=== PATIENT | male | born 1965 | race Caucasian/White ===

== ENCOUNTER 2020-05-03 03:10 | Emergency (ER) | payer SELFPAY ==
[2020-05-03] MEDS ORDERED: predniSONE 20 MG Tab PO STA (04:12)
--- NOTE | 2020-05-03 04:20 | EDM.PDOC ---
ED HPI GENERAL MEDICAL PROBLEM - General Chief Complaint: General Stated Complaint: covid Time Seen by Provider: 05/03/20 03:15 Source of Information: Reports: Patient History Limitations: Reports: No Limitations - History of Present Illness INITIAL COMMENTS - FREE TEXT/NARRATIVE: Patient presented to the ED because of fever,chills,malaise, cough and cold with associated dyspnea for 2 days. There is no N/V/D. GENERALIZED Pain Score (Numeric/FACES): 0 - Related Data Allergies Allergy/AdvReac Type Severity Reaction Status Date / Time No Known Allergies Allergy Verified 05/03/20 03:40 Home Meds: Home Meds predniSONE [Prednisone] 40 mg PO DAILY #10 tablet 05/03/20 [Rx] ED ROS GENERAL - Review of Systems Review Of Systems: See Below Constitutional: Reports: Fever, Chills, Malaise, Weakness HEENT: Reports: No Symptoms Respiratory: Reports: Shortness of Breath, Cough Cardiovascular: Reports: No Symptoms Endocrine: Reports: No Symptoms GI/Abdominal: Reports: No Symptoms : Reports: No Symptoms Musculoskeletal: Reports: No Symptoms Skin: Reports: No Symptoms Neurological: Reports: No Symptoms ED EXAM, GENERAL - Physical Exam Exam: See Below Exam Limited By: No Limitations General Appearance: Alert, No Apparent Distress Eye Exam: Bilateral Eye: PERRL Ears: Normal External Exam, Normal Canal Nose: Normal Inspection, Normal Mucosa, No Blood Throat/Mouth: Normal Inspection, Normal Lips, Normal Teeth Head: Atraumatic, Normocephalic Neck: Normal Inspection, Supple, Non-Tender, Full Range of Motion Respiratory/Chest: No Respiratory Distress, Lungs Clear, Wheezing Cardiovascular: Normal Peripheral Pulses, Regular Rate, Rhythm, No Edema, No Gallop GI/Abdominal: Normal Bowel Sounds, Soft, Non-Tender, No Organomegaly Back Exam: Normal Inspection, Full Range of Motion Extremities: Normal Inspection, Normal Range of Motion, Non-Tender, No Pedal Edema, Normal Capillary Refill Course - Vital Signs Text/Narrative:: COVID-pos CXR-see result Oxygen VNC with significant improvemnt of his dyspnea. His oxygen saturation upon discharge was 98% on RA Prednisone 40 mg po x1 Last Recorded V/S: Last Vital Signs Temp 36.5 C 05/03/20 05:30 Pulse 104 H 05/03/20 05:30 Resp 18 05/03/20 05:30 BP 142/67 H 05/03/20 05:30 Pulse Ox 98 05/03/20 05:30 - Orders/Labs/Meds Labs: Laboratory Tests 05/03/20 Range/Units 04:00 SARS-CoV-2 RNA (KOLE) Positive H (NEGATIVE) Meds: Medications Discontinued Medications Generic Name Dose Route Start Last Admin Trade Name Chu PRN Reason Stop Dose Admin Prednisone 40 mg 05/03/20 04:12 05/03/20 04:28 Prednisone PO 05/03/20 04:13 40 mg NOW STA Administration Departure - Departure Time of Disposition: 05:30 Disposition: Home, Self-Care 01 Condition: Good Clinical Impression: Viral respiratory illness, COVID-19 - Discharge Information Prescriptions: predniSONE [Prednisone] 40 mg PO DAILY #10 tablet Instructions: COVID-19 Frequently Asked Questions, Viral Respiratory Infection, [id number] Referrals: PCP,None [Primary Care Provider] - Forms: ED Department Discharge Additional Instructions: please read discharge instructions on viral respiratory illness/COVID 19 increase oral fluids at least 2-3 liters a days take ibuprofen 800 mg with tylenol 1000 mg every 8 hours as needed for fever/aches/pain take 1 tablet daily of Vitamin C-500 mg, Vitamin D-2000 Units, and Zinc-50 mg isolate yourself for 10-14 days Sepsis Event Note (ED) - Focused Exam Vital Signs: Vital Signs Temp Pulse Resp BP Pulse Ox 05/03/20 05:30 36.5 C 104 H 18 142/67 H 98 05/03/20 03:15 36.6 C 106 H 20 131/55 L 98
--- NOTE | 2020-05-03 11:10 | CR ---
INDICATION: Cough, dyspnea. CHEST ONE VIEW: An AP upright portable view of the chest was obtained 05/03/20 - no comparisons. The heart appears enlarged, but is emphasized by AP positioning. The examination is overpenetrated limiting its usability for diagnosis. Pulmonary vasculature appears somewhat congested raising question of CHF. Pulmonary vascular congestion of other cause could be present. No gross consolidating pneumonia or effusion was seen. Exogenous obesity is noted. IMPRESSION: Somewhat limited study suggests CHF with cardiomegaly, but should be correlated clinically. Full inspiration PA and lateral views of the chest are recommended when clinically possible. MTDD
== END 2020-05-03 05:45 | disposition home or self-care (01) ==
LOC: FB.ED 03:10
DX: U07.1 COVID-19 (principal)
CPT/HCPCS: 71045; 99283-25; J7512; U0002

== ENCOUNTER 2020-05-05 08:55 | Emergency (ER) | payer SELFPAY ==
[2020-05-05] MEDS ORDERED: Albuterol 8 GM Inhaler INH ONE ×2 (08:56→10:16)
--- NOTE | 2020-05-05 09:59 | EDM.PDOC ---
ED HPI GENERAL MEDICAL PROBLEM - General Chief Complaint: Respiratory Problem Stated Complaint: COVID SYMPTOMS Time Seen by Provider: 05/05/20 09:50 Source of Information: Reports: Patient History Limitations: Reports: No Limitations - History of Present Illness INITIAL COMMENTS - FREE TEXT/NARRATIVE: 54-year-old male who reports that on 04/27/2020 he developed nasal congestion, cough, malaise, body aches and. The symptoms persisted and on 05/03/2020 he was seen in this emergency department and had a chest x-ray which showed very vascularity and he had a COVID 19 test that was positive. His O2 saturations and other vital signs were normal. A prescription for prednisone and told to drink plenty of fluids, rest and take ibuprofen and Tylenol. He came to the emergency department today to get a note for his work and he reports that when he walked into the emergency department he was very short of breath and he felt that he should be seen. His O2 saturations at that time were 95%. His Rester rate was up at 24 but his blood pressure and pulse were normal. He denies any vomiting. He has had some nausea. He has not been able to get his prednisone filled because he does not have any money to do such. He has been drinking liquids well. He reports body aches and headache that he rates as an 8/10. It is aching and dull. It does seem to get somewhat better with Tylenol and ibuprofen. There are no other associated signs or symptoms. There are no other modifying factors. Onset: Other (04/27/2020) Duration: Constant (The patient felt that he was somewhat worse today when he was walking from the car to here.) Location: Reports: Head, Generalized Quality: Reports: Ache, Dull Severity: Moderate Improves with: Reports: Medication Worsens with: Reports: Movement Context: Reports: Other (The above) Associated Symptoms: Reports: No Other Symptoms (Except as above) Treatments PANTS CUTTER: Reports: NSAIDS Generalized Pain Score (Numeric/FACES): 8 - Related Data Allergies Allergy/AdvReac Type Severity Reaction Status Date / Time No Known Allergies Allergy Verified 05/05/20 09:05 Home Meds: Home Meds predniSONE [Prednisone] 40 mg PO DAILY #10 tablet 05/03/20 [Rx] Ascorbic Acid [Vitamin C] 1,000 mg PO DAILY 05/05/20 [History] Cholecalciferol (Vitamin D3) [Vitamin D3] 2,000 unit PO DAILY 05/05/20 [History] Zinc Gluconate [Zinc] 40 mg PO DAILY 05/05/20 [History] Past Medical History Musculoskeletal History: Reports: Arthritis, Fracture Other Musculoskeletal History: hx fx arm x 2, L arm x 1, deviated septum, Neurological History: Reports: Seizure Psychiatric History: Reports: Addiction, Anxiety, Bipolar, Depression, Psych Hospitalization(s), Schizophrenia, Suicide Attempt Other Psychiatric History: hx ETOH abuse & pot abuse, Endocrine/Metabolic History: Reports: Obesity/BMI 30+ - Infectious Disease History Infectious Disease History: Reports: Chicken Pox - Past Surgical History HEENT Surgical History: Reports: Adenoidectomy, Myringotomy w Tube(s), Tonsillectomy GI Surgical History: Reports: Cholecystectomy Social & Family History - Family History Family Medical History: No Pertinent Family History - Tobacco Use Tobacco Use Status *Q: Former Tobacco User Years of Tobacco use: 3 Used Tobacco, but Quit: Yes Month/Year Tobacco Last Used: 2018 - Caffeine Use Caffeine Use: Reports: Coffee, Energy Drinks, Soda, Tea - Alcohol Use Days Per Week of Alcohol Use: 3 Number of Drinks Per Day: 5 Total Drinks Per Week: 15 - Recreational Drug Use Recreational Drug Use: Yes Recreational Drug Type: Reports: Marijuana/Hashish Recreational Drug Use Frequency: Daily - Living Situation & Occupation Occupation: Employed (At [employer]) Social History Comment: He states he recently moved here from [place]. ED ROS GENERAL - Review of Systems Review Of Systems: See Below Constitutional: Reports: Fever, Chills, Malaise, Fatigue, Decreased Appetite HEENT: Reports: Other (Nasal congestion) Respiratory: Reports: Shortness of Breath, Wheezing, Cough Cardiovascular: Reports: No Symptoms GI/Abdominal: Reports: Nausea. Denies: Diarrhea, Vomiting : Reports: No Symptoms Musculoskeletal: Reports: Other (Diffuse body aches) Skin: Reports: No Symptoms Neurological: Reports: No Symptoms Hematologic/Lymphatic: Reports: No Symptoms Immunologic: Reports: No Symptoms ED EXAM, GENERAL - Physical Exam Exam: See Below Exam Limited By: No Limitations General Appearance: Alert, Mild Distress (He looks uncomfortable and he does ayon ve an increased respiratory rate but normal vital signs otherwise.), Obese Eye Exam: Bilateral Eye: EOMI, Normal Inspection Ears: Normal External Exam, Hearing Grossly Normal Ear Exam: Bilateral Ear: Auricle Normal Nose: Nasal Drainage Throat/Mouth: Normal Voice, No Airway Compromise Head: Atraumatic, Normocephalic Neck: Normal Inspection, Supple, Non-Tender, Full Range of Motion Respiratory/Chest: No Accessory Muscle Use, Crackles, Rhonchi, Wheezing, Other (Good air movement.) Cardiovascular: Normal Peripheral Pulses, Regular Rate, Rhythm, No Murmur Peripheral Pulses: 2+: Radial (L), Radial (R) GI/Abdominal: Normal Bowel Sounds, Soft, Non-Tender, Other (Protuberant) Back Exam: Normal Inspection Extremities: Normal Inspection, Normal Range of Motion, Normal Capillary Refill Neurological: Alert, Oriented, CN II-XII Intact, Normal Cognition, No Motor/Sensory Deficits Skin Exam: Warm, Dry, Intact, Normal Color, No Rash Course - Vital Signs Last Recorded V/S: Last Vital Signs Temp 36.7 C 05/05/20 08:55 Pulse 98 05/05/20 08:55 Resp 24 H 05/05/20 08:55 BP 149/76 H 05/05/20 08:55 Pulse Ox 98 05/05/20 08:55 - Orders/Labs/Meds Orders: Active Orders 24 hr Category Date Time Status Accu Check [Blood Glucose Check, Bedside] [RC] ONETIME Care 05/05/20 10:29 Active RT Post Treatment Assessment [RC] Click to Edit Care 05/05/20 10:17 Active Labs: Laboratory Tests 05/05/20 Range/Units 10:32 POC Glucose 108 H (74-100) mg/dL Meds: Medications Discontinued Medications Generic Name Dose Route Start Last Admin Trade Name Checoq PRN Reason Stop Dose Admin Albuterol 1 gm 05/05/20 10:16 Ventolin Hfa INH 05/05/20 10:17 ONETIME ONE Prednisone 60 mg 05/05/20 10:16 05/05/20 10:27 Prednisone PO 05/05/20 10:17 60 mg ONETIME ONE Administration - Re-Assessments/Exams Free Text/Narrative Re-Assessment/Exam: 05/05/20 10:15: Middle-aged male with diagnosis of COVID on 05/03/2020. He was seen in this emergency Department by Dr. Curtis and had a chest x-ray that time which showed some increased pulmonary vascularity. He was placed on prednisone and given instructions on COVID and told to do symptomatic treatment. Today his O2 saturations are normal. His respiratory rate is slightly increased but his pulse and blood pressure were normal. He does not appear to be toxic at this time. He did not get his prednisone filled because he did not have money to do so. His exam today did show some crackles and maybe some wheezing. I will give him an albuterol inhaler to use and I will give him another dose of prednisone today and he tells me that his brother will be able to get his prednisone filled for him tomorrow. He is to continue home treatment as was directed previously. Precautions and reasons for return to the emergency department were discussed with the patient while he was in the emergency department every detail to the patient's discharge instructions. Departure - Departure Time of Disposition: 10:30 Disposition: Home, Self-Care 01 Condition: Good (Stable) Clinical Impression: COVID-19 virus infection URI (upper respiratory infection) Qualifiers: URI type: unspecified URI Qualified Code(s): J06.9 - Acute upper respiratory infection, unspecified - Discharge Information Referrals: PCP,None [Primary Care Provider] - Forms: ED Department Discharge, ED Return to Work/School Form Additional Instructions: Your exam a showed a normal O2 saturation. Your blood pressure and pulse were also normal. Your blood sugar was 108 and that is normal. You do have some wheezing and you were give an albuterol inhaler to use for your shortness of breath and cough. You should use the spacer that we provided and you may use 2-4 puffs every 4 hours as needed for wheezing, shortness of breath or cough. You were also given another dose of prednisone and you will need to get the prescription filled that you were given by Doctor on Saturday and finish that. Increase your fluid intake. Take Tylenol and ibuprofen as needed for fever or pain. No work for 10 days from 05/03/2020 and until you are fever free for 24 hours back to the emergency department for Aashish vomiting, severe weakness, worsened breathing or any other concerning sign or symptom. Sepsis Event Note (ED) - Evaluation Sepsis Screening Result: Possible Sepsis Risk - Focused Exam Vital Signs: Vital Signs Temp Pulse Resp BP Pulse Ox 05/05/20 08:55 36.7 C 98 24 H 149/76 H 98 - My Orders Last 24 Hours: My Active Orders 05/05/20 10:17 RT Post Treatment Assessment [RC] Click to Edit 05/05/20 10:29 Accu Check [Blood Glucose Check, Bedside] [RC] ONETIME - Assessment/Plan Last 24 Hours: My Active Orders 05/05/20 10:17 RT Post Treatment Assessment [RC] Click to Edit 05/05/20 10:29 Accu Check [Blood Glucose Check, Bedside] [RC] ONETIME
[2020-05-05] MEDS ORDERED: predniSONE 20 MG Tab PO ONE (10:16)
== END 2020-05-05 10:55 | disposition home or self-care (01) ==
LOC: EEVIPCON 08:55 → FB.ED 08:55
DX: U07.1 COVID-19 (principal); J06.9 Acute upper respiratory infection, unspecified; E66.9 Obesity, unspecified; Z68.41 Body mass index [BMI] 40.0-44.9, adult; Z87.891 Personal history of nicotine dependence
CPT/HCPCS: 82962; 99283; J7512; A9270-GY

== ENCOUNTER 2020-12-07 09:23 | Emergency (ER) | payer OTHER ==
[2020-12-07] MEDS ORDERED: Sodium Chloride 0.9% 10 ML Syringe FLUSH PRN (09:24)
[2020-12-07] MEDS ORDERED: diphenhydrAMINE 50 MG/ML SDV IVPUSH ONE (09:40)
--- NOTE | 2020-12-07 09:48 | EDM.PDOC ---
ED HPI GENERAL MEDICAL PROBLEM - General Chief Complaint: Respiratory Problem Stated Complaint: SOB Time Seen by Provider: 12/07/20 09:40 Source of Information: Reports: Patient History Limitations: Reports: No Limitations - History of Present Illness INITIAL COMMENTS - FREE TEXT/NARRATIVE: Patient developed pruritis to bilateral forearms, a blotchy rash to legs, and SOB after drinking tea this morning. The tea was procured from [place] and he does not know the ingredients. His legs feel restless. Patient was sent from clinic to the ED this morning by EMS. He did have chest pain in the clinic, but this has since resolved. Patient was hospitalized for 7 weeks in April 2020 with COVID pneumonia and GI bleed. He has required Albuterol MDI intermittently since this hospitalization, but is currently out. Patient admits to drinking alcohol regularly and, other than THC, does not use illicit drugs. Denies cough. No prior h/o CAD. Onset: Today - Related Data Allergies Allergy/AdvReac Type Severity Reaction Status Date / Time No Known Allergies Allergy Verified 05/05/20 09:05 Home Meds: Home Meds ALPRAZolam [Xanax] 0.25 mg PO 12/07/20 [History] Albuterol Sulfate [Albuterol Sulfate Hfa] 2 puff IH Q4H PRN #1 hfa.aer.ad 12/07/20 [Rx] Baclofen 5 mg PO 12/07/20 [History] Furosemide [Lasix] 20 mg PO 12/07/20 [History] Furosemide [Lasix] 40 mg PO 12/07/20 [History] Lactulose [Cephulac] 10 gm PO 12/07/20 [History] Pantoprazole [ProTONIX] 40 mg PO DAILY 12/07/20 [History] Sertraline [Zoloft] 50 mg PO DAILY 12/07/20 [History] Spironolactone [Aldactone] 100 mg PO DAILY 12/07/20 [History] Triamcinolone Acetonide [Triamcinolone Acetonide 0.1% Crm] 1 applic .XX 12/07/20 [History] Past Medical History Gastrointestinal History: Reports: Cirrhosis Musculoskeletal History: Reports: Arthritis, Fracture Other Musculoskeletal History: hx fx arm x 2, L arm x 1, deviated septum, Psychiatric History: Reports: Addiction, Anxiety, Bipolar, Depression, Psych Hospitalization(s), Suicide Attempt Other Psychiatric History: hx ETOH abuse & pot abuse, Endocrine/Metabolic History: Reports: Obesity/BMI 30+ - Infectious Disease History Infectious Disease History: Reports: Chicken Pox - Past Surgical History Head Surgeries/Procedures: Reports: None HEENT Surgical History: Reports: Adenoidectomy, Myringotomy w Tube(s), Tonsillectomy GI Surgical History: Reports: Cholecystectomy Musculoskeletal Surgical History: Reports: None Social & Family History - Family History Family Medical History: No Pertinent Family History - Caffeine Use Caffeine Use: Reports: Coffee, Energy Drinks, Soda, Tea - Alcohol Use Alcohol Use History: Yes - Recreational Drug Use Recreational Drug Type: Reports: Marijuana/Hashish - Living Situation & Occupation Occupation: Employed (At [employer]) ED ROS GENERAL - Review of Systems Review Of Systems: Comprehensive ROS is negative, except as noted in HPI. ED EXAM, GENERAL - Physical Exam Exam: See Below Exam Limited By: No Limitations General Appearance: Alert, WD/WN, No Apparent Distress Eye Exam: Bilateral Eye: EOMI, PERRL Nose: Normal Inspection Throat/Mouth: No Airway Compromise Head: Atraumatic, Normocephalic Neck: Full Range of Motion Respiratory/Chest: No Respiratory Distress, Lungs Clear, Normal Breath Sounds Cardiovascular: Regular Rate, Rhythm, No Murmur GI/Abdominal: Non-Tender Back Exam: Full Range of Motion Extremities: Normal Range of Motion, Non-Tender, Normal Capillary Refill, Pedal Edema, Other (rhythmic leg movements present which stops when distracted) Neurological: Alert, Oriented, No Motor/Sensory Deficits Psychiatric: Anxious Skin Exam: Warm, Dry, Other (mild erythema to lower legs with scattered pale blotches) #1 Interpretation EKG Date: 12/07/20 Time: 09:20 Rhythm: NSR Rate (Beats/Min): 88 Butler: Normal P-Wave: Present QRS: Normal ST-T: Normal Comparison: No Change (06/02/2020) Course - Vital Signs Last Recorded V/S: Last Vital Signs Temp 36.7 C 12/07/20 09:23 Pulse 89 12/07/20 10:30 Resp 20 12/07/20 10:30 BP 147/60 H 12/07/20 10:30 Pulse Ox 98 12/07/20 10:30 - Orders/Labs/Meds Orders: Active Orders 24 hr Category Date Time Status EKG Documentation Completion [RC] ASDIRECTED Care 12/07/20 09:24 Active Ang Chest [CT] Stat Exams 12/07/20 10:15 Taken Sodium Chloride 0.9% [Saline Flush] Med 12/07/20 09:24 Active 10 ml FLUSH ASDIRECTED PRN Saline Lock Insert [OM.PC] Routine Oth 12/07/20 09:24 Ordered EKG 12 Lead [EK] Stat Ther 12/07/20 09:24 Ordered Medication Orders Sodium Chloride (Sodium Chloride 0.9% 10 Ml Syringe) 10 ml FLUSH ASDIRECTED PRN PRN Reason: Keep Vein Open Last Admin: 12/07/20 11:28 Dose: 10 ml Documented by: PAYTON Labs: Laboratory Tests 12/07/20 12/07/20 12/07/20 Range/Units 09:40 09:40 09:40 WBC 6.6 (3.2-10.1) x10-3/uL RBC 3.29 L (3.90-5.90) x10(6)uL Hgb 10.3 L (12.9-17.7) g/dL Hct 31.3 L (38.3-50.1) % MCV 95.1 (80.8-98.7) fL MCH 31.4 (27.0-33.3) pg MCHC 33.0 (28.7-35.3) g/dL RDW 14.4 (12.4-15.0) % Plt Count 181 (117-477) x10(3)uL MPV 8.2 (6.7-11.0) fL Neut % (Auto) 76.1 H (40.3-71.8) % Lymph % (Auto) 10.8 L (15.8-45.3) % Johnston % (Auto) 10.6 (5.5-15.2) % Eos % (Auto) 1.7 (0.1-6.8) % Baso % (Auto) 0.8 (0.3-3.8) % Neut # (Auto) 5.0 (1.7-6.9) x10-3/uL Lymph # (Auto) 0.7 (0.5-4.5) x10-3/uL Johnston # (Auto) 0.7 (0.0-1.2) x10-3/uL Eos # (Auto) 0.1 (0.0-0.6) x10-3/uL Baso # (Auto) 0.0 (0.0-0.3) x10-3/uL PT 11.4 H (9.0-11.1) sec INR 1.06 (1.00-1.24) APTT 28.1 (24.4-33.2) SECONDS D-Dimer, Quantitative 0.64 H (0.0-0.59) mg/LFEU Sodium 134 L (135-145) mmol/L Potassium 4.2 (3.5-5.3) mmol/L Chloride 98 L (100-110) mmol/L Carbon Dioxide 26 (21-32) mmol/L BUN 8 (7-18) mg/dL Creatinine 1.1 (0.70-1.30) mg/dL Est Cr Clr Drug Dosing 69.27 mL/min Estimated GFR (MDRD) > 60 (>60) BUN/Creatinine Ratio 7.3 L (9-20) Glucose 120 H (80-116) mg/dL Calcium 8.4 L (8.6-10.2) mg/dL Magnesium 2.0 (1.8-2.5) mg/dL Total Bilirubin 1.1 (0.1-1.3) mg/dL AST 91 H (5-25) IU/L ALT 32 (12-36) U/L Alkaline Phosphatase 198 H (56-112) IU/L Troponin I (4.0-60.3) pg/mL NT-Pro-B Natriuret Pep (<=125) pg/mL Total Protein 8.3 H (6.0-8.0) g/dL Albumin 2.9 L (3.5-5.2) g/dL Globulin 5.4 g/dL Albumin/Globulin Ratio 0.5 SARS-CoV-2 RNA (KOLE) (NEGATIVE) 12/07/20 12/07/20 Range/Units 09:40 09:48 WBC (3.2-10.1) x10-3/uL RBC (3.90-5.90) x10(6)uL Hgb (12.9-17.7) g/dL Hct (38.3-50.1) % MCV (80.8-98.7) fL MCH (27.0-33.3) pg MCHC (28.7-35.3) g/dL RDW (12.4-15.0) % Plt Count (117-477) x10(3)uL MPV (6.7-11.0) fL Neut % (Auto) (40.3-71.8) % Lymph % (Auto) (15.8-45.3) % Johnston % (Auto) (5.5-15.2) % Eos % (Auto) (0.1-6.8) % Baso % (Auto) (0.3-3.8) % Neut # (Auto) (1.7-6.9) x10-3/uL Lymph # (Auto) (0.5-4.5) x10-3/uL Johnston # (Auto) (0.0-1.2) x10-3/uL Eos # (Auto) (0.0-0.6) x10-3/uL Baso # (Auto) (0.0-0.3) x10-3/uL PT (9.0-11.1) sec INR (1.00-1.24) APTT (24.4-33.2) SECONDS D-Dimer, Quantitative (0.0-0.59) mg/LFEU Sodium (135-145) mmol/L Potassium (3.5-5.3) mmol/L Chloride (100-110) mmol/L Carbon Dioxide (21-32) mmol/L BUN (7-18) mg/dL Creatinine (0.70-1.30) mg/dL Est Cr Clr Drug Dosing mL/min Estimated GFR (MDRD) (>60) BUN/Creatinine Ratio (9-20) Glucose (80-116) mg/dL Calcium (8.6-10.2) mg/dL Magnesium (1.8-2.5) mg/dL Total Bilirubin (0.1-1.3) mg/dL AST (5-25) IU/L ALT (12-36) U/L Alkaline Phosphatase (56-112) IU/L Troponin I 17.9 (4.0-60.3) pg/mL NT-Pro-B Natriuret Pep 132 H (<=125) pg/mL Total Protein (6.0-8.0) g/dL Albumin (3.5-5.2) g/dL Globulin g/dL Albumin/Globulin Ratio SARS-CoV-2 RNA (KOLE) Negative (NEGATIVE) Meds: Medications Generic Name Dose Route Start Last Admin Trade Name Freq PRN Reason Stop Dose Admin Sodium Chloride 10 ml 12/07/20 09:24 12/07/20 11:28 Sodium Chloride 0.9% 10 Ml Syringe FLUSH 10 ml ASDIRECTED PRN Administration Keep Vein Open Discontinued Medications Generic Name Dose Route Start Last Admin Trade Name Freq PRN Reason Stop Dose Admin Diphenhydramine HCl 25 mg 12/07/20 09:40 12/07/20 10:29 Diphenhydramine 50 Mg/Ml Sdv IVPUSH 12/07/20 09:41 25 mg ONETIME ONE Administration Iopamidol 100 ml 12/07/20 10:24 12/07/20 10:47 Iopamidol 755 Mg/Ml 100 Ml Bottle IV 12/07/20 10:25 90 ml . DIRECTED ONE Administration - Radiology Interpretation Free Text/Narrative:: CXR: No acute process. (ED provider interpretation) CTA Chest: No pulmonary embolus seen, no pneumonia. (verbal report from Dr. Vega) - Re-Assessments/Exams Free Text/Narrative Re-Assessment/Exam: 12/07/20 11:31 Dyspnea and leg rash resolved after Benadryl 25mg IV. Departure - Departure Time of Disposition: 11:32 Disposition: Home, Self-Care 01 Condition: Good Clinical Impression: Allergic reaction Qualifiers: Encounter type: initial encounter Qualified Code(s): T78.40XA - Allergy, unspe cified, initial encounter Dyspnea Qualifiers: Dyspnea type: unspecified Qualified Code(s): R06.00 - Dyspnea, unspecified - Discharge Information *PRESCRIPTION DRUG MONITORING PROGRAM REVIEWED*: No *COPY OF PRESCRIPTION DRUG MONITORING REPORT IN PATIENT [place]: Not Applicable Prescriptions: Albuterol Sulfate [Albuterol Sulfate Hfa] 2 puff IH Q4H PRN #1 hfa.aer.ad PRN Reason: Shortness Of Breath Instructions: Allergies, Adult, [id number], Shortness of Breath, Adult Referrals: Betty Alonso PA-C [Primary Care Provider] - Forms: ED Department Discharge, ED Return to Work/School Form Additional Instructions: Fill the prescription for Albuterol at [facility] in [place] and take as directed. Take OTC Benadryl 50mg every 6 hours as needed to control allergic symptoms. Discontinue the tea. Return to the ER as needed. Sepsis Event Note (ED) - Evaluation Sepsis Screening Result: No Definite Risk - Focused Exam Vital Signs: Vital Signs Temp Pulse Resp BP Pulse Ox 12/07/20 10:30 89 20 147/60 H 98 12/07/20 09:30 89 20 155/75 H 97 12/07/20 09:23 36.7 C 98 20 151/60 H 98 - My Orders Last 24 Hours: My Active Orders 12/07/20 09:24 EKG Documentation Completion [RC] ASDIRECTED Sodium Chloride 0.9% [Saline Flush] 10 ml FLUSH ASDIRECTED PRN Saline Lock Insert [OM.PC] Routine EKG 12 Lead [EK] Stat 12/07/20 10:15 Ang Chest [CT] Stat - Assessment/Plan Last 24 Hours: My Active Orders 12/07/20 09:24 EKG Documentation Completion [RC] ASDIRECTED Sodium Chloride 0.9% [Saline Flush] 10 ml FLUSH ASDIRECTED PRN Saline Lock Insert [OM.PC] Routine EKG 12 Lead [EK] Stat 12/07/20 10:15 Ang Chest [CT] Stat
[2020-12-07] MEDS ORDERED: Iopamidol 755 Mg/ML 100 ML Bottle IV ONE (10:24)
--- NOTE | 2020-12-07 10:43 | CR ---
INDICATION: Short of breath. CHEST ONE VIEW: AP portable upright view of the chest was limited by patient body habitus - exogenous obesity. The heart did not appear grossly enlarged. No gross consolidating pneumonia or effusion was identified. Compared with 05/03/20, little interval change is suggested. It is difficult to exclude interstitial changes - possibly fibrotic. IMPRESSION: 1. No definite acute process. 2. Possible pulmonary fibrosis. 3. Exogenous obesity. MTDD
--- NOTE | 2020-12-07 12:15 | CT ---
INDICATION: Short of breath, question PE, elevated D-dimer 0.64. CT ANGIOGRAPHY OF THE CHEST WITH CONTRAST: Spiral 1.25 mm axial sections were obtained through the chest with 90 mL Isovue-370 at 4 mL/sec with axial, sagittal and coronal reconstructions 12/07/20 - no comparisons except for a chest x-ray of the same date. Total exam DLP was 1058.30 milligray-cm. Detail is somewhat limited due to patient body habitus. A mild degree of mediastinal lymphadenopathy is noted which is nonspecific. No mediastinal mass was seen. The heart appears to be at the upper limits of normal in size. A small fixed hiatal hernia is noted. No pericardial effusion was seen. The upper abdomen included on the study showed evidence of cholecystectomy. An active infiltrate, effusion, or nodular mass was not identified in the lungs or pleural spaces. Pulmonary arteries were not well opacified apparently due to the patient breathing during the examination due to his shortness of breath apparently. No definite pulmonary emboli could be identified. Certainly, no large emboli were present. IMPRESSION: 1. The study is somewhat limited as to concentration of contrast in the pulmonary arteries. However, no definite pulmonary emboli could be identified. 2. Heart at the upper limits of normal in size or slightly enlarged. 3. Small fixed hiatal hernia. 4. Post cholecystectomy. 5. Exogenous obesity. Report was called to Dr. Pereira at 1124 hours 12/07/20. [facility]
== END 2020-12-07 11:53 | disposition home or self-care (01) ==
LOC: FB.ED 09:23
DX: T78.1XXA Other adverse food reactions, not elsewhere classified, initial encounter (principal); R06.02 Shortness of breath; E66.9 Obesity, unspecified; Z68.39 Body mass index [BMI] 39.0-39.9, adult; Z79.899 Other long term (current) drug therapy; Z20.822 Contact with and (suspected) exposure to COVID-19
CPT/HCPCS: 36415; 71045; 71275; 80053; 83735; 83880; 84484; 85025; 85379; 85610; 85730; 87635; 93005; 93010; 96374; 99284; 99285; J1200; Q9967; U0002

== ENCOUNTER 2021-01-16 09:43 | Emergency (ER) | payer OTHER ==
[2021-01-16] MEDS ORDERED: Sodium Chloride 0.9% 10 ML Syringe FLUSH PRN (10:16)
[2021-01-16] MEDS ORDERED: Pantoprazole 40 MG Vial IVPUSH STA (10:18)
[2021-01-16] MEDS ORDERED: Ondansetron 4 MG/2 ML SDV IVPUSH ONE (10:18)
[2021-01-16] MEDS ORDERED: Morphine 2 MG/ML SYRINGE IVPUSH STA (10:19)
[2021-01-16] MEDS ORDERED: Sodium Chloride 0.9% 1,000 ML IV SCH (10:30)
[2021-01-16] MEDS ORDERED: Iopamidol 755 MG/ML 150 ML Bottle IV ONE (10:43)
--- NOTE | 2021-01-16 11:19 | EDM.PDOC ---
ED HPI GENERAL MEDICAL PROBLEM - General Chief Complaint: Gastrointestinal Problem Stated Complaint: GI BLEED-LIVER PT Time Seen by Provider: 01/16/21 09:50 Source of Information: Reports: Patient History Limitations: Reports: No Limitations - History of Present Illness INITIAL COMMENTS - FREE TEXT/NARRATIVE: Patient is a 55 YO WM who presented to the ED because of coughing with blood tinged sputum which started last night and at 3 am today he had abdominal pain, nausea, vomiting and 1 melanotic stool. His pain is sharp,8/10, over the epigastric area. He has a history of ALD with esophageal and gastric varices. Upper Abdomen Pain Score (Numeric/FACES): 4 - Related Data Allergies Allergy/AdvReac Type Severity Reaction Status Date / Time No Known Allergies Allergy Verified 01/16/21 10:16 Home Meds: Home Meds ALPRAZolam [Xanax] 0.25 mg PO DAILY PRN 12/07/20 [History] Baclofen 5 mg PO BEDTIME PRN 12/07/20 [History] Furosemide [Lasix] 20 mg PO ASDIRECTED 12/07/20 [History] Furosemide [Lasix] 40 mg PO ASDIRECTED 12/07/20 [History] Lactulose [Cephulac] 45 ml PO TID 12/07/20 [History] Pantoprazole [ProTONIX] 40 mg PO DAILY 12/07/20 [History] Sertraline [Zoloft] 50 mg PO DAILY 12/07/20 [History] Spironolactone [Aldactone] 100 mg PO DAILY 12/07/20 [History] Triamcinolone Acetonide [Triamcinolone Acetonide 0.1% Crm] 1 applic TOP TID PRN 12/07/20 [History] Acetaminophen 650 mg PO Q6HR PRN 01/16/21 [History] Albuterol Sulfate [Albuterol Sulfate Hfa] 1 puff IH Q6H PRN 01/16/21 [History] Past Medical History Respiratory History: Reports: Other (See Below) Other Respiratory History: Pneumonia Gastrointestinal History: Reports: Cirrhosis Musculoskeletal History: Reports: Arthritis, Fracture Other Musculoskeletal History: hx fx arm x 2, L arm x 1, deviated septum, Psychiatric History: Reports: Addiction, Anxiety, Bipolar, Depression, Psych Hospitalization(s), Suicide Attempt Other Psychiatric History: hx ETOH abuse & pot abuse, Endocrine/Metabolic History: Reports: Obesity/BMI 30+ Hematologic History: Reports: Blood Transfusion(s) - Infectious Disease History Infectious Disease History: Reports: Chicken Pox - Past Surgical History Head Surgeries/Procedures: Reports: None HEENT Surgical History: Reports: Adenoidectomy, Myringotomy w Tube(s), Tonsillectomy GI Surgical History: Reports: Cholecystectomy Musculoskeletal Surgical History: Reports: None Social & Family History - Family History Family Medical History: No Pertinent Family History - Caffeine Use Caffeine Use: Reports: None - Living Situation & Occupation Occupation: Employed (At [employer]) ED ROS GENERAL - Review of Systems Review Of Systems: See Below Constitutional: Reports: No Symptoms HEENT: Reports: No Symptoms Respiratory: Reports: No Symptoms Cardiovascular: Reports: No Symptoms Endocrine: Reports: No Symptoms GI/Abdominal: Reports: Abdominal Pain, Black Stool, Nausea, Vomiting Musculoskeletal: Reports: No Symptoms Skin: Reports: No Symptoms Neurological: Reports: No Symptoms Psychiatric: Reports: No Symptoms ED EXAM, GI/ABD - Physical Exam Exam: See Below Exam Limited By: No Limitations General Appearance: Alert, No Apparent Distress Ears: Normal External Exam, Normal Canal Nose: Normal Inspection, Normal Mucosa Throat/Mouth: Normal Inspection, Normal Lips, Normal Teeth Head: Atraumatic, Normocephalic Neck: Normal Inspection, Supple, Non-Tender, Full Range of Motion Respiratory/Chest: No Respiratory Distress, Lungs Clear, Normal Breath Sounds, No Accessory Muscle Use, Chest Non-Tender Cardiovascular: Normal Peripheral Pulses, Regular Rate, Rhythm, No Edema, No Gallop, No JVD, No Murmur GI/Abdominal Exam: Normal Bowel Sounds, Soft, Other (epigastric,LUQ and RUQ tenderness) Back Exam: Normal Inspection, Full Range of Motion Extremities: Normal Inspection, Normal Range of Motion, Non-Tender, No Pedal Edema, Normal Capillary Refill Neurological: Alert, Oriented, CN II-XII Intact, Normal Cognition, Normal Reflexes, No Motor/Sensory Deficits Psychiatric: Normal Affect Course - Vital Signs Text/Narrative:: Lab result was reviewed and discussed with patient Chest and Abd CT-pending Protonix 80 mg IV x1 Morphine 2 mg IV x1 Zofran 8 mg IV x1 NS 1 L bolus Octreotide 50 mcg IV bolus and 50 mcg IV/hr drip Case was discussed with DR Gonzalez Code status: Full Code Last Recorded V/S: Last Vital Signs Temp 36.9 C 01/16/21 12:53 Pulse 93 01/16/21 12:53 Resp 20 01/16/21 12:53 BP 153/70 H 01/16/21 12:53 Pulse Ox 96 01/16/21 12:53 - Orders/Labs/Meds Orders: Active Orders 24 hr Category Date Time Status Saline Lock Insert [OM.PC] Routine Oth 01/16/21 10:16 Ordered Labs: Laboratory Tests 01/16/21 01/16/21 01/16/21 Range/Units 09:55 09:55 09:55 WBC 7.5 (3.2-10.1) x10-3/uL RBC 3.05 L (3.90-5.90) x10(6)uL Hgb 8.7 L (12.9-17.7) g/dL Hct 26.9 L (38.3-50.1) % MCV 88.0 (80.8-98.7) fL MCH 28.4 (27.0-33.3) pg MCHC 32.3 (28.7-35.3) g/dL RDW 16.3 H (12.4-15.0) % Plt Count 198 (117-477) x10(3)uL MPV 7.9 (6.7-11.0) fL Neut % (Auto) 75.1 H (40.3-71.8) % Lymph % (Auto) 12.4 L (15.8-45.3) % [place] % (Auto) 9.4 (5.5-15.2) % Eos % (Auto) 2.7 (0.1-6.8) % Baso % (Auto) 0.4 (0.3-3.8) % Neut # (Auto) 5.7 (1.7-6.9) x10-3/uL Lymph # (Auto) 0.9 (0.5-4.5) x10-3/uL [place] # (Auto) 0.7 (0.0-1.2) x10-3/uL Eos # (Auto) 0.2 (0.0-0.6) x10-3/uL Baso # (Auto) 0.0 (0.0-0.3) x10-3/uL PT 12.0 H (9.0-11.1) sec INR 1.12 (1.00-1.24) APTT 27.9 (24.4-33.2) SECONDS Sodium 130 L (135-145) mmol/L Potassium 4.0 (3.5-5.3) mmol/L Chloride 98 L (100-110) mmol/L Carbon Dioxide 25 (21-32) mmol/L BUN 12 (7-18) mg/dL Creatinine 1.2 (0.70-1.30) mg/dL Est Cr Clr Drug Dosing 63.50 mL/min Estimated GFR (MDRD) > 60 (>60) BUN/Creatinine Ratio 10.0 (9-20) Glucose 132 H (80-116) mg/dL Calcium 8.5 L (8.6-10.2) mg/dL Total Bilirubin 3.4 H (0.1-1.3) mg/dL AST 83 H (5-25) IU/L ALT 30 (12-36) U/L Alkaline Phosphatase 227 H (56-112) IU/L Total Protein 8.0 (6.0-8.0) g/dL Albumin 2.9 L (3.5-5.2) g/dL Globulin 5.1 g/dL Albumin/Globulin Ratio 0.6 Amylase 87 (25-115) U/L Lipase (73-393) U/L Urine Color (YELLOW) Urine Appearance (CLEAR) Urine pH (5.0-6.5) Ur Specific [place] (1.010-1.025) Urine Protein (NEGATIVE) mg/dL Urine Glucose (UA) (NORMAL) mg/dL Urine Ketones (NEGATIVE) mg/dL Urine Occult Blood (NEGATIVE) Urine Nitrite (NEGATIVE) Urine Bilirubin (NEGATIVE) Urine Urobilinogen (NEGATIVE) mg/dL Ur Leukocyte Esterase (NEGATIVE) Urine RBC (0-5) Urine WBC (0-5) Ur Squamous Epith Cells (NS,R,O) Urine Bacteria (NS) 01/16/21 01/16/21 Range/Units 09:55 12:16 WBC (3.2-10.1) x10-3/uL RBC (3.90-5.90) x10(6)uL Hgb (12.9-17.7) g/dL Hct (38.3-50.1) % MCV (80.8-98.7) fL MCH (27.0-33.3) pg MCHC (28.7-35.3) g/dL RDW (12.4-15.0) % Plt Count (117-477) x10(3)uL MPV (6.7-11.0) fL Neut % (Auto) (40.3-71.8) % Lymph % (Auto) (15.8-45.3) % [place] % (Auto) (5.5-15.2) % Eos % (Auto) (0.1-6.8) % Baso % (Auto) (0.3-3.8) % Neut # (Auto) (1.7-6.9) x10-3/uL Lymph # (Auto) (0.5-4.5) x10-3/uL [place] # (Auto) (0.0-1.2) x10-3/uL Eos # (Auto) (0.0-0.6) x10-3/uL Baso # (Auto) (0.0-0.3) x10-3/uL PT (9.0-11.1) sec INR (1.00-1.24) APTT (24.4-33.2) SECONDS Sodium (135-145) mmol/L Potassium (3.5-5.3) mmol/L Chloride (100-110) mmol/L Carbon Dioxide (21-32) mmol/L BUN (7-18) mg/dL Creatinine (0.70-1.30) mg/dL Est Cr Clr Drug Dosing mL/min Estimated GFR (MDRD) (>60) BUN/Creatinine Ratio (9-20) Glucose (80-116) mg/dL Calcium (8.6-10.2) mg/dL Total Bilirubin (0.1-1.3) mg/dL AST (5-25) IU/L ALT (12-36) U/L Alkaline Phosphatase (56-112) IU/L Total Protein (6.0-8.0) g/dL Albumin (3.5-5.2) g/dL Globulin g/dL Albumin/Globulin Ratio Amylase (25-115) U/L Lipase 329 (73-393) U/L Urine Color Yellow (YELLOW) Urine Appearance Clear (CLEAR) Urine pH 8.0 H (5.0-6.5) Ur Specific [place] 1.010 (1.010-1.025) Urine Protein Negative (NEGATIVE) mg/dL Urine Glucose (UA) Normal (NORMAL) mg/dL Urine Ketones Negative (NEGATIVE) mg/dL Urine Occult Blood Negative (NEGATIVE) Urine Nitrite Negative (NEGATIVE) Urine Bilirubin Negative (NEGATIVE) Urine Urobilinogen 1 H (NEGATIVE) mg/dL Ur Leukocyte Esterase Negative (NEGATIVE) Urine RBC 0-5 (0-5) Urine WBC 0-5 (0-5) Ur Squamous Epith Cells Occasional (NS,R,O) Urine Bacteria Rare H (NS) Meds: Medications Discontinued Medications Generic Name Dose Route Start Last Admin Trade Name Freq PRN Reason Stop Dose Admin Sodium Chloride 1,000 mls @ 999 mls/hr 01/16/21 10:30 01/16/21 10:22 Normal Saline IV 999 mls/hr ASDIRECTED JOE Administration Octreotide Acetate 250 mcg/ 252.5 mls @ 50.5 mls/hr 01/16/21 11:45 01/16/21 12:17 Sodium Chloride IV 50 mcg/hr Q10H JOE 50.5 mls/hr Administration 50 MCG/HR Iopamidol 132 ml 01/16/21 10:43 01/16/21 10:57 Iopamidol 755 Mg/Ml 150 Ml Bottle IV 01/16/21 10:44 132 ml ONETIME ONE Administration Morphine Sulfate 2 mg 01/16/21 10:19 01/16/21 10:24 Morphine 2 Mg/Ml Syringe IVPUSH 01/16/21 10:20 2 mg NOW STA Administration Octreotide Acetate 50 mcg 01/16/21 11:33 01/16/21 12:17 Octreotide 100 Mcg/Ml Sdv IVPUSH 01/16/21 11:34 50 mcg NOW STA Administration Ondansetron HCl 8 mg 01/16/21 10:18 01/16/21 10:25 Ondansetron 4 Mg/2 Ml Sdv IVPUSH 01/16/21 10:19 8 mg ONETIME ONE Administration Pantoprazole Sodium 80 mg 01/16/21 10:18 01/16/21 10:25 Pantoprazole 40 Mg Vial IVPUSH 01/16/21 10:19 80 mg NOW STA Administration Sodium Chloride 10 ml 01/16/21 10:16 01/16/21 10:40 Sodium Chloride 0.9% 10 Ml Syringe FLUSH 10 ml ASDIRECTED PRN Administration Keep Vein Open Departure - Departure Time of Disposition: 12:00 Disposition: DC/Tfer to Acute Hospital 02 Condition: Good Clinical Impression: UGI bleed, Esophageal varices, Alcoholic liver disease, Anemia due to GI blood loss - Discharge Information Referrals: PCP,Not In Area [Primary Care Provider] - Forms: ED Department Discharge Sepsis Event Note (ED) - Evaluation Sepsis Screening Result: No Definite Risk - My Orders Last 24 Hours: My Active Orders 01/16/21 10:16 Saline Lock Insert [OM.PC] Routine - Assessment/Plan Last 24 Hours: My Active Orders 01/16/21 10:16 Saline Lock Insert [OM.PC] Routine
[2021-01-16] MEDS ORDERED: Octreotide 100 MCG/ML SDV IVPUSH STA (11:33)
[2021-01-16] MEDS ORDERED: Octreotide 250 MCG in Sodium Chloride 0.9% 250 ML IV SCH (11:45)
--- NOTE | 2021-01-16 12:58 | CT ---
INDICATION: Hemoptysis. CT CHEST WITH CONTRAST [id number]: Spiral 3.75 mm axial sections were obtained through the chest with contrast already on board from CT of the abdomen and pelvis. Sagittal, coronal, and axial reconstructions were obtained 01/16/21 - comparison 12/07/20. Total exam DLP was 997.42 mGy-cm. There is an increase in mediastinal lymphadenopathy compared with the previous study, likely on the basis of interval infections. No mediastinal mass was identified. The heart appeared to be at the upper limits of normal in size. No pericardial effusion was seen. Small fixed hiatal hernia is suggested. There is some linear density in the middle lobe compatible with subsegmental atelectasis, not present on the previous study. A definite active infiltrate or effusion was not identified. No mass lesions were seen in the lungs or pleural spaces. There is thickening of the major fissure at the lung base likely fibrotic in nature and present previously. IMPRESSION: 1. No definite acute abnormality except for question of linear atelectasis in the middle lobe. 2. ASHD. 3. Small fixed hiatal hernia. 4. Post cholecystectomy. Report was called to Dr. Curtis at at 1231 hours, 01/16/21. [facility]
--- NOTE | 2021-01-16 13:17 | CT ---
INDICATION: Epigastric pain, bloody stools - history of three GI bleeds, including esophageal. CT ABDOMEN AND PELVIS WITH CONTRAST [id number]: Spiral 3.75 mm axial sections were obtained through the abdomen and pelvis with 132 mL Isovue-370 at 3 mL/second with sagittal and coronal reconstructions 01/16/21 - no comparisons. TOTAL EXAM DLP: 2317.12 mGy/cm. The lower lung mcdermott and pleural spaces visualized revealed slightly prominent patchy subpleural markings, which may represent fibrosis, although minimal pneumonia would be a consideration. The heart appears to be at the upper limits of normal in size. No pericardial effusion was seen. Small fixed hiatal hernia is suggested. The liver had a normal appearance, except for a small low-density lesion anteriorly in the right lobe, seen on axial image 26, which may represent a cyst. Slightly thickened wall at the gastric antrum raises question of peptic ulcer disease - correlate clinically. The gallbladder is absent, compatible with cholecystectomy. The adrenal glands appear grossly normal. The kidneys, spleen and pancreas appear normal with normal common bile duct in the head of the pancreas, and no intrahepatic ductal dilatation suggested. No retroperitoneal mass was seen. Calcifications are noted in the aorta without aneurysmic dilatation. Erosive iliac artery calcifications on the right and also right femoral artery calcification. No significant inguinal or ventral hernia was noted. There is an appearance suggesting some thickening of the lining-wall of the colon - transverse and descending. This could be on the basis of colitis, but should be correlated clinically. Sigmoid diverticulosis is noted without definite evidence of diverticulitis. There also appears to be some thickening of the wall in the retrosigmoid. Urinary bladder appeared normal. The prostate did not appear enlarged. The appendix is absent, compatible with history of its removal. No evidence of free air or bowel obstruction was seen. Hypertrophic degenerative changes are noted in the mid to lower lumbosacral spine with degenerative disc disease at L5-S1 with vacuum disc phenomenon at that level. There is some herniated gas in the epidural space at that level also. Narrowing of the neural foramina at L5-S1 is noted. IMPRESSION: 1. Thickening of the wall of the colon, as noted above, could represent colitis - colonoscopy may be helpful for further evaluation. 2. Post cholecystectomy, post appendectomy. 3. Small low-density lesion right lobe of the liver, likely a cyst. 4. Degenerative changes and disc disease lumbosacral spine. 5. Diverticulosis colli - sigmoid, without definite diverticulitis. 6. Tiny fixed hiatal hernia is suggested. 7. Slightly thickened wall at the gastric antrum raises question of peptic ulcer disease - correlate clinically. Report was called to Dr. Curtis at 1144 hours,. 01/16/21. [facility]
== END 2021-01-16 12:53 ==
LOC: FB.ED 09:43
DX: K70.9 Alcoholic liver disease, unspecified (principal); I85.11 Secondary esophageal varices with bleeding; D50.0 Iron deficiency anemia secondary to blood loss (chronic); E66.9 Obesity, unspecified; Z68.39 Body mass index [BMI] 39.0-39.9, adult; Z90.49 Acquired absence of other specified parts of digestive tract
CPT/HCPCS: 36415; 71250; 74177; 80053; 81001; 82150; 83690; 85025; 85610; 85730; 96365; 96375; 99285; C9113; J2270; J2354; J2405; J7030; J7050; Q9967

== ENCOUNTER 2021-06-20 11:28 | Emergency (ER) | payer BC, MEDICAID ==
[2021-06-20] MEDS ORDERED: Acetaminophen/HYDROcodone 325-5 MG Tab PO STA (13:10)
[2021-06-20] MEDS ORDERED: Ondansetron 4 MG Tab.DIS PO STA (13:10)
--- NOTE | 2021-06-20 13:10 | EDM.PDOC ---
ED HPI GENERAL MEDICAL PROBLEM - General Chief Complaint: General Stated Complaint: covid Time Seen by Provider: 06/20/21 11:35 Source of Information: Reports: Patient History Limitations: Reports: No Limitations - History of Present Illness INITIAL COMMENTS - FREE TEXT/NARRATIVE: Patient presented to the ED because of chills, constipation, nausea/vomiting, and pleuritic chest pain, dyspnea which started yesterday. He was diagnosed with Covid today and just want to be checked . He said he is acutely psychotic but while I am talking to him he is coherent and is able to talk to me appropriately. - Related Data Allergies Allergy/AdvReac Type Severity Reaction Status Date / Time No Known Allergies Allergy Verified 01/16/21 10:16 Home Meds: Home Meds ALPRAZolam [Xanax] 0.25 mg PO DAILY PRN 12/07/20 [History] Baclofen 5 mg PO BEDTIME PRN 12/07/20 [History] Furosemide [Lasix] 20 mg PO ASDIRECTED 12/07/20 [History] Furosemide [Lasix] 40 mg PO ASDIRECTED 12/07/20 [History] Lactulose [Cephulac] 45 ml PO TID 12/07/20 [History] Pantoprazole [ProTONIX] 40 mg PO DAILY 12/07/20 [History] Sertraline [Zoloft] 50 mg PO DAILY 12/07/20 [History] Spironolactone [Aldactone] 100 mg PO DAILY 12/07/20 [History] Triamcinolone Acetonide [Triamcinolone Acetonide 0.1% Crm] 1 applic TOP TID PRN 12/07/20 [History] Acetaminophen 650 mg PO Q6HR PRN 01/16/21 [History] Albuterol Sulfate [Albuterol Sulfate Hfa] 1 puff IH Q6H PRN 01/16/21 [History] Ondansetron [Zofran ODT] 4 mg PO Q4H PRN #5 tab.dis 06/20/21 [Rx] traMADol [Ultram] 50 mg PO Q6H PRN #15 tab 06/20/21 [Rx] Past Medical History Respiratory History: Reports: Other (See Below) Other Respiratory History: Pneumonia Gastrointestinal History: Reports: Cirrhosis, Other (See Below) Other Gastrointestinal History: esophageal varices Musculoskeletal History: Reports: Arthritis, Fracture Other Musculoskeletal History: hx fx arm x 2, L arm x 1, deviated septum, Psychiatric History: Reports: Addiction, Anxiety, Bipolar, Depression, Psych Hospitalization(s), Suicide Attempt Other Psychiatric History: hx ETOH abuse & pot abuse, Endocrine/Metabolic History: Reports: Obesity/BMI 30+ Hematologic History: Reports: Blood Transfusion(s) Oncologic (Cancer) History: Reports: None - Infectious Disease History Infectious Disease History: Reports: Chicken Pox, Other (See Below) Other Infectious Disease History: Covid19 - Past Surgical History Head Surgeries/Procedures: Reports: None HEENT Surgical History: Reports: Adenoidectomy, Myringotomy w Tube(s), Tonsillectomy GI Surgical History: Reports: Cholecystectomy Musculoskeletal Surgical History: Reports: None Social & Family History - Family History Family Medical History: No Pertinent Family History - Caffeine Use Caffeine Use: Reports: Soda - Living Situation & Occupation Occupation: Employed (At [employer]) ED ROS GENERAL - Review of Systems Review Of Systems: See Below Constitutional: Reports: No Symptoms HEENT: Reports: No Symptoms Respiratory: Reports: Shortness of Breath, Cough Cardiovascular: Reports: No Symptoms Endocrine: Reports: No Symptoms GI/Abdominal: Reports: Constipation, Nausea : Reports: No Symptoms Musculoskeletal: Reports: No Symptoms Skin: Reports: No Symptoms Neurological: Reports: No Symptoms Psychiatric: Reports: No Symptoms ED EXAM, GENERAL - Physical Exam Exam: See Below Exam Limited By: No Limitations General Appearance: Alert, No Apparent Distress Eye Exam: Bilateral Eye: PERRL Ears: Normal External Exam, Normal Canal Nose: Normal Inspection, Normal Mucosa, No Blood Throat/Mouth: Normal Inspection, Normal Lips, Normal Teeth Head: Atraumatic, Normocephalic Neck: Normal Inspection, Supple, Non-Tender, Full Range of Motion Respiratory/Chest: No Respiratory Distress, Lungs Clear, Normal Breath Sounds, No Accessory Muscle Use, Chest Non-Tender Cardiovascular: Normal Peripheral Pulses, Regular Rate, Rhythm, No Edema GI/Abdominal: Normal Bowel Sounds, Soft, Non-Tender, No Organomegaly, No Distention, No Abnormal Bruit Back Exam: Normal Inspection, Full Range of Motion Extremities: Normal Inspection, Normal Range of Motion Neurological: Alert, Oriented, CN II-XII Intact, Normal Cognition, Normal Reflexes Psychiatric: Normal Affect Course - Vital Signs Text/Narrative:: Lab exam done in the clinic: Cbc, CMP, Covid test was reviewed and discussed with patient CXR-neg NH3-pending Trop,Pro-BNP,D-dimer -negative Last Recorded V/S: Last Vital Signs Temp 36.6 C 06/20/21 11:28 Pulse 108 H 06/20/21 11:28 Resp 18 06/20/21 11:28 BP 138/65 06/20/21 11:28 Pulse Ox 99 06/20/21 11:28 - Orders/Labs/Meds Orders: Active Orders 24 hr Category Date Time Status Chest 2V [CR] Stat Exams 06/20/21 12:05 Taken AMMONIA, PLASMA Routine Lab 06/20/21 12:20 Received Labs: Laboratory Tests 06/20/21 06/20/21 06/20/21 Range/Units 12:20 12:20 12:20 D-Dimer, Quantitative 0.34 (0.0-0.59) mg/LFEU Troponin I 4.7 (4.0-60.3) pg/mL NT-Pro-B Natriuret Pep 85 (<=125) pg/mL Meds: Medications Discontinued Medications Generic Name Dose Route Start Last Admin Trade Name Freq PRN Reason Stop Dose Admin Hydrocodone Bitart/Acetaminophen 1 tab 06/20/21 13:10 Acetaminophen/Hydrocodone 325-5 Mg Tab PO 06/20/21 13:11 NOW STA Ondansetron HCl 4 mg 06/20/21 13:10 Ondansetron 4 Mg Tab.Dis PO 06/20/21 13:11 NOW STA Departure - Departure Time of Disposition: 13:30 Disposition: Home, Self-Care 01 Condition: Good Clinical Impression: COVID-19 virus infection - Discharge Information Prescriptions: traMADol [Ultram] 50 mg PO Q6H PRN #15 tab PRN Reason: pain/ache Ondansetron [Zofran ODT] 4 mg PO Q4H PRN #5 tab.dis PRN Reason: Nausea Instructions: COVID-19 Frequently Asked Questions Referrals: Betty Alonso PA-C [Primary Care Provider] - Forms: ED Department Discharge Additional Instructions: Please read discharge instructions on Covid 19 Quarantine yourself for 10 days Drink fluids Take ypour lactulose daily Zofran odt every 4 hours as needed for nausea Tramadol 50 mg every 6 hours as needed for aches and pain Follow up as needed Sepsis Event Note (ED) - Evaluation Sepsis Screening Result: No Definite Risk - Focused Exam Vital Signs: Vital Signs Temp Pulse Resp BP Pulse Ox 06/20/21 11:28 36.6 C 108 H 18 138/65 99 - My Orders Last 24 Hours: My Active Orders 06/20/21 12:05 Chest 2V [CR] Stat 06/20/21 12:20 AMMONIA, PLASMA Routine - Assessment/Plan Last 24 Hours: My Active Orders 06/20/21 12:05 Chest 2V [CR] Stat 06/20/21 12:20 AMMONIA, PLASMA Routine
--- NOTE | 2021-06-20 21:10 | CR ---
CHEST TWO VIEWS INDICATION: Shortness of breath - COVID positive. FINDINGS: PA and lateral views of the chest 06/20/21 were compared with 11/18/20. The heart did not appear enlarged and appeared normal in shape. The aorta is minimally tortuous. No gross consolidating pneumonia or effusion could be identified. Slightly heavy markings likely are fibrotic in nature, but at the lower lung mcdermott/lung bases especially on the left, it is difficult to exclude minimal patchy bronchopneumonia. Deformity is noted at the proximal left humerus/shoulder, most likely on the basis of previous trauma but should be correlated clinically. Fracture that is healed appearing is noted at the distal clavicular shaft on the right. Evidence of exogenous obesity is noted. IMPRESSION: No definite acute process, but difficult to exclude minimal patchy bronchopneumonia at the lung bases. MTDD
== END 2021-06-20 13:50 | disposition home or self-care (01) ==
LOC: FB.ED 11:28
DX: U07.1 COVID-19 (principal); E66.9 Obesity, unspecified; Z68.41 Body mass index [BMI] 40.0-44.9, adult; Z79.899 Other long term (current) drug therapy
CPT/HCPCS: 36415; 71046; 82140; 83880; 84484; 85379; 99284-25; 99285; A9270-GY

== ENCOUNTER 2022-02-08 18:52 | Inpatient (IN) | payer BC, MEDICAID ==
[2022-02-08 20:10] LABS: ESTIMATED GFR 78 mL/min (>60)
[2022-02-08] MEDS ORDERED: Pantoprazole 40 MG Vial IVPUSH ONE (20:54)
[2022-02-08] MEDS ORDERED: LORazepam 2 MG/ML SDV IVPUSH PRN (20:54)
[2022-02-08] MEDS: Thiamine 200 MG/2 ML MDV IVPUSH SCH (21:08)
[2022-02-08] MEDS: Piperacillin/Tazobactam 3.375 GM in Sodium Chloride 0.9% 50 ML IV SCH (21:54)
[2022-02-08] MEDS: Sodium Chloride 0.9% 10 ML Syringe FLUSH PRN (22:25)
[2022-02-08] MEDS: Acetaminophen 325 MG Tab PO PRN (22:54)
[2022-02-08] MEDS: Albuterol 0.083% 2.5 MG/3 ML Neb Soln NEB PRN (23:14)
[2022-02-09] MEDS: Piperacillin/Tazobactam 3.375 GM in Sodium Chloride 0.9% 50 ML IV SCH ×3 (03:34→15:48)
[2022-02-09] MEDS: Albuterol 0.083% 2.5 MG/3 ML Neb Soln NEB PRN (04:09)
[2022-02-09] MEDS: Ondansetron 4 MG/2 ML SDV IV PRN ×2 (04:20→08:20)
[2022-02-09] MEDS: Sodium Chloride 0.9% 10 ML Syringe FLUSH PRN ×3 (04:20→10:05)
[2022-02-09] MEDS: Acetaminophen 325 MG Tab PO PRN (04:30)
[2022-02-09 06:40] LABS: ESTIMATED GFR 87 mL/min (>60)
[2022-02-09] MEDS ORDERED: Iopamidol 755 MG/ML 150 ML Bottle IV ONE (07:14)
[2022-02-09] MEDS: Thiamine 200 MG/2 ML MDV IVPUSH SCH (09:25)
[2022-02-09] MEDS ORDERED: Folic Acid 50 MG/10 ML MDV IV SCH (09:30)
[2022-02-09] MEDS: Folic Acid 1 MG Tab PO SCH (09:43)
[2022-02-09] MEDS: Spironolactone 50 MG Tab PO SCH (09:43)
[2022-02-09] MEDS ORDERED: Sodium Chloride 0.9% 1,000 ML IV ONE (11:21)
[2022-02-09] MEDS: LORazepam 2 MG/ML SDV IVPUSH PRN ×2 (11:55→13:19)
[2022-02-09] MEDS ORDERED: LORazepam 1 MG Tab PO SCH (12:00)
[2022-02-09] MEDS: cloNIDine 0.1 MG Tab PO SCH ×2 (14:10→19:38)
[2022-02-09] MEDS: Pantoprazole 40 MG Vial IVPUSH SCH ×2 (19:28→21:29)
[2022-02-09] MEDS: Sodium Chloride 0.9% 1,000 ML IV SCH (22:00)
[2022-02-10] MEDS: cloNIDine 0.1 MG Tab PO SCH ×3 (04:38→20:42)
[2022-02-10] MEDS: Acetaminophen 325 MG Tab PO PRN (04:39)
[2022-02-10 06:33] LABS: ESTIMATED GFR 70 mL/min (>60)
[2022-02-10] MEDS: Sodium Chloride 0.9% 1,000 ML IV SCH (08:20)
[2022-02-10] MEDS: Pantoprazole 40 MG Vial IVPUSH SCH (09:43)
[2022-02-10] MEDS: Thiamine 100 MG Tab PO SCH (10:19)
[2022-02-10] MEDS: Folic Acid 1 MG Tab PO SCH (10:19)
[2022-02-10] MEDS: Spironolactone 50 MG Tab PO SCH (10:19)
[2022-02-10] MEDS: Pantoprazole 40 MG Tab.CR PO SCH (20:42)
[2022-02-11] MEDS: cloNIDine 0.1 MG Tab PO SCH (04:44)
[2022-02-11 06:44] LABS: ESTIMATED GFR 70 mL/min (>60)
[2022-02-11] MEDS: Folic Acid 1 MG Tab PO SCH (09:27)
[2022-02-11] MEDS: Spironolactone 50 MG Tab PO SCH (09:27)
[2022-02-11] MEDS: Thiamine 100 MG Tab PO SCH (09:28)
[2022-02-11] MEDS: Pantoprazole 40 MG Tab.CR PO SCH (09:30)
== END 2022-02-11 09:55 | disposition home or self-care (01) | DRG 896 ==
LOC: FB.ED 18:52 → FB.MS 20:54
PROVIDERS: ADMIT Family Medicine; ATTEND Student in an Organized Health Care Education/Training Program
DX: F10.221 Alcohol dependence with intoxication delirium (principal); A41.9 Sepsis, unspecified organism; E87.1 Hypo-osmolality and hyponatremia; Z68.41 Body mass index [BMI] 40.0-44.9, adult; F10.239 Alcohol dependence with withdrawal, unspecified; F10.288 Alcohol dependence with other alcohol-induced disorder; E66.01 Morbid (severe) obesity due to excess calories; D63.8 Anemia in other chronic diseases classified elsewhere; D50.0 Iron deficiency anemia secondary to blood loss (chronic); K70.31 Alcoholic cirrhosis of liver with ascites; K29.70 Gastritis, unspecified, without bleeding; F41.9 Anxiety disorder, unspecified; F31.9 Bipolar disorder, unspecified; Y90.0 Blood alcohol level of less than 20 mg/100 ml; Z87.891 Personal history of nicotine dependence; Z86.16 Personal history of COVID-19; Z79.899 Other long term (current) drug therapy; Z87.01 Personal history of pneumonia (recurrent); Z90.49 Acquired absence of other specified parts of digestive tract
CPT/HCPCS: 36415; 70450; 71045; 74177; 80048; 80053; 80307; 82140; 82550; 83605; 83690; 83735; 83880; 84484; 85014; 85018; 85025; 86140; 93005; 94640; 99285; A9270-GY; C9113; J2060; J2405; J2543; J3411; J3490; J7030; Q9967

== ENCOUNTER 2022-06-20 12:12 | Emergency (ER) | payer MEDICAID ==
[2022-06-20] MEDS ORDERED: Sodium Chloride 0.9% 10 ML Syringe FLUSH PRN (12:52)
[2022-06-20 13:50] LABS: ESTIMATED GFR 70 mL/min (>60)
== END 2022-06-20 16:00 | disposition home or self-care (01) ==
LOC: FB.ED 12:12
DX: K70.9 Alcoholic liver disease, unspecified (principal); K76.82 Hepatic encephalopathy; E66.9 Obesity, unspecified; Z68.30 Body mass index [BMI] 30.0-30.9, adult; Z86.16 Personal history of COVID-19
CPT/HCPCS: 36415; 71045; 80053; 80307; 82140; 84484; 85025; 85610; 85730; 93005; 99285

== ENCOUNTER 2022-07-02 07:48 | Emergency (ER) | payer MEDICAID ==
[2022-07-02 08:43] LABS: ESTIMATED GFR 78 mL/min (>60)
[2022-07-02] MEDS: Morphine 2 MG/ML SYRINGE IVPUSH ONE (10:54)
== END 2022-07-02 11:04 ==
LOC: FB.ED 07:48
DX: K72.10 Chronic hepatic failure without coma (principal); K76.82 Hepatic encephalopathy; N18.9 Chronic kidney disease, unspecified; D63.1 Anemia in chronic kidney disease; E66.9 Obesity, unspecified; Z68.39 Body mass index [BMI] 39.0-39.9, adult
CPT/HCPCS: 36415; 71101-RT; 80053; 81001; 82140; 85025; 85610; 96374; 99285; 99285-25; J2270

== ENCOUNTER 2022-08-18 02:28 | Emergency (ER) | payer MEDICAID ==
[2022-08-18] MEDS ORDERED: Morphine 2 MG/ML SYRINGE IVPUSH ONE ×2 (03:07→04:37)
[2022-08-18] MEDS ORDERED: Sodium Chloride 0.9% 10 ML Syringe FLUSH PRN (03:07)
[2022-08-18] MEDS ORDERED: Ondansetron 4 MG/2 ML SDV IVPUSH ONE (03:07)
[2022-08-18 03:20] LABS: ESTIMATED GFR 58 mL/min (>60)
[2022-08-18] MEDS ORDERED: Sodium Chloride 0.9% 1,000 ML IV SCH (04:45)
[2022-08-18] MEDS ORDERED: HYDROmorphone 2 MG/ML SDV IVPUSH ONE ×2 (06:07→21:26)
[2022-08-18] MEDS ORDERED: cefTRIAXone 2 GM Vial IVPUSH ONE (06:07)
[2022-08-18] MEDS ORDERED: LORazepam 2 MG/ML SDV IVPUSH ONE (09:52)
[2022-08-18] MEDS ORDERED: Spironolactone 50 MG Tab PO ONE (14:39)
[2022-08-18] MEDS ORDERED: Lactulose Soln 10 GM/15 ML 30 ML UD Cup PO ONE ×2 (14:40→18:43)
[2022-08-18] MEDS ORDERED: Lactulose Soln 10 GM/15 ML 15 ML UD Cup ONE ×3 (14:50→19:07)
[2022-08-18] MEDS ORDERED: Lactulose Soln 10 GM/15 ML 15 ML UD Cup PO ONE ×2 (14:58→19:13)
[2022-08-18] MEDS ORDERED: Pantoprazole 40 MG Vial IVPUSH ONE (15:47)
[2022-08-18] MEDS ORDERED: ClonazePAM 0.5 MG Tab PO ONE (16:03)
[2022-08-18 20:11] LABS: ESTIMATED GFR 78 mL/min (>60)
== END 2022-08-18 22:02 ==
LOC: FB.ED 02:28
DX: E87.20 Acidosis, unspecified (principal); Y90.0 Blood alcohol level of less than 20 mg/100 ml; K72.10 Chronic hepatic failure without coma; R06.03 Acute respiratory distress; F10.921 Alcohol use, unspecified with intoxication delirium; K70.31 Alcoholic cirrhosis of liver with ascites
CPT/HCPCS: 36415; 80053; 80307; 81001; 83605; 83735; 84484; 85025; 85610; 86140; 87040; 93005; 93010; 96361; 96374; 96375; 96376; 99285; 99285-25; A9270-GY; C9113; J0696; J1170; J2060; J2270; J2405; J3490; J7030